=== PATIENT | male | born 1960 | race Caucasian/White ===

== ENCOUNTER → 2021-01-19 | Outpatient (CLI) | payer OTHER ==
[~2021-01-19] VITALS: Ht 68 cm; Wt 105.0 kg
[~2021-01-19] MED LIST: ACETAMINOPHEN 500 MG TAB (TYLENOL) PO PRN; CASIRIVIMAB/IMDEVIMAB 1,200 MG in NS (IVPB) 250 ML IV ONE; EPINEPHrine INJECTION 1 MG/ML AMP IM PRN; ONDANSETRON 4 MG/2 ML (SDV) Z0FRAN IV PRN; diphenhydrAMINE 50 MG/ML INJ (BENADRYL) IV PRN
[2021-01-19 11:39] VITALS: BP 135/69
[2021-01-19 12:51] VITALS: BP 113/72
== END ==
LOC: INFUSION 11:33
PROVIDERS: ATTEND Registered Nurse
DX: U07.1 COVID-19 (principal)

== ENCOUNTER 2021-10-29 19:02 | Emergency (ER) | payer OTHER ==
[~2021-10-29] VITALS: Ht 176 cm; Wt 110.5 kg
[2021-10-29] MEDS ORDERED: NS IV 1000 ML 1,000 ML IV STA ×2 (19:18→20:30)
[2021-10-29] MEDS ORDERED: ACETAMINOPHEN 500 MG TAB (TYLENOL) PO STA (19:18)
--- NOTE | 2021-10-29 19:34 | ED Fever ---
History of Present Illness General Stated Complaint: FEVER,TROUBLE BREATHING Source: patient History of Present Illness Date Seen by Provider: Oct 29, 2021 Time Seen by Provider: 19:05 Initial Comments 60-year-old male presenting from [facility] urgent care. He reports last week on October 22 he was diagnosed with COVID and was prescribed Paxlovid. He took that for 5 days and reports he was feeling better until last night when he started feeling bad again. He has felt like he has chest tightness and shortness of breath with fever and chills. He took tylenol this am. He was told that he had a fever when he was at urgent care and was told to come to the emergency department. He feels little anxious now since he was told he had to come to the emergency department. He denies having nausea, vomiting, abdominal pain, diarrhea, pain with urination, dark-colored urine, cough, runny nose, sore throat, headache. He was not aware that you could have a rebound effect after taking the Paxlovid. 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 Associated Symptoms: No abdominal pain, No chest pain, No confusion, No cough, No diaphoresis, No headache, No muscle aches, No nausea/vomiting, No rash; shortness of breath; No sore throat, No stiff neck, No syncope, No weakness Allergies and Home Medications Allergies Coded Allergies: No Known Drug Allergies (Unverified , 01/19/21) Patient Home Medication List Home Medication List Reviewed: Yes Review of Systems Review of Systems Constitutional: chills, fever, malaise EENTM: no symptoms reported; No ear pain, No epistaxis, No nose congestion, No throat pain Respiratory: No cough; short of breath; No stridor, No wheezing Cardiovascular: No chest pain; palpitations Gastrointestinal: No nausea, No vomiting Genitourinary: No decreased output, No dysuria Musculoskeletal: no symptoms reported Skin: No rash Psychiatric/Neurological: Anxiety Hematologic/Lymphatic: Denies Blood Clots, Denies Easy Bleeding, Denies Easy Bruising Past Bdnalae-Vcvyuj-Tfidqb Hx Patient Social History Tobacco Use?: No Past Medical History Surgery/Hospitalization HX: Diabetes Type II Physical Exam Vital Signs - First Documented 10/29/21 10/29/21 19:32 19:36 Temp 38.0 Pulse 128 Resp 20 B/P (MAP) 142/80 (100) Pulse Ox 99 O2 Delivery Room Air Capillary Refill : Height: '" Weight: lbs. oz. 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 tested, no motor/sensory deficits, alert, oriented x 3 Skin: normal color, warm/dry Focused Exam Lactate Level 10/29/21 19:22: Lactic Acid Level 1.41 Lactic Acid Level Laboratory Tests Test 10/29/21 19:22 Lactic Acid Level 1.41 MMOL/L (0.50-2.00) Progress/Results/Core Measures Suspected Sepsis SIRS Temperature: Pulse: Respiratory Rate: Laboratory Tests 10/29/21 19:22: White Blood Count 12.9H Blood Pressure / Mean: 10/29/21 19:22: Lactic Acid Level 1.41 Laboratory Tests 10/29/21 19:22: Creatinine 1.04, Platelet Count 309, Total Bilirubin 0.7 Results/Orders Lab Results Laboratory Tests Test 10/29/21 19:22 10/29/21 20:00 Range/Units White Blood Count 12.9 H 4.3-11.0 10^3/uL Red Blood Count 5.21 4.30-5.52 10^6/uL Hemoglobin 15.8 13.3-17.7 g/dL Hematocrit 46 40-54 % Mean Corpuscular Volume 88 80-99 fL Mean Corpuscular Hemoglobin 30 25-34 pg Mean Corpuscular Hemoglobin Concent 34 32-36 g/dL Red Cell Distribution Width 12.8 10.0-14.5 % Platelet Count 309 130-400 10^3/uL Mean Platelet Volume 9.4 9.0-12.2 fL Immature Granulocyte % (Auto) 0 % Neutrophils (%) (Auto) 90 H 42-75 % Lymphocytes (%) (Auto) 4 L 12-44 % Monocytes (%) (Auto) 5 0-12 % Eosinophils (%) (Auto) 1 0-10 % Basophils (%) (Auto) 0 0-10 % Neutrophils # (Auto) 11.5 H 1.8-7.8 10^3/uL Lymphocytes # (Auto) 0.5 L 1.0-4.0 10^3/uL Monocytes # (Auto) 0.6 0.0-1.0 10^3/uL Eosinophils # (Auto) 0.2 0.0-0.3 10^3/uL Basophils # (Auto) 0.0 0.0-0.1 10^3/uL Immature Granulocyte # (Auto) 0.0 0.0-0.1 10^3/uL Neutrophils % (Manual) 86 % Lymphocytes % (Manual) 6 % Monocytes % (Manual) 5 % Eosinophils % (Manual) 3 % Toxic Granulation 2+ Platelet Estimate NORMAL Poikilocytosis SLIGHT D-Dimer < 0.27 0.00-0.49 UG/ML Sodium Level 136 135-145 MMOL/L Potassium Level 4.7 3.6-5.0 MMOL/L Chloride Level 99 98-107 MMOL/L Carbon Dioxide Level 24 21-32 MMOL/L Anion Gap 13 5-14 MMOL/L Blood Urea Nitrogen 25 H 7-18 MG/DL Creatinine 1.04 0.60-1.30 MG/DL Estimat Glomerular Filtration Rate 81 BUN/Creatinine Ratio 24 Glucose Level 159 H 70-105 MG/DL Lactic Acid Level 1.41 0.50-2.00 MMOL/L Calcium Level 10.5 H 8.5-10.1 MG/DL Corrected Calcium 8.5-10.1 MG/DL Total Bilirubin 0.7 0.1-1.0 MG/DL Aspartate Amino Transf (AST/SGOT) 15 5-34 U/L Alanine Aminotransferase (ALT/SGPT) 19 0-55 U/L Alkaline Phosphatase 70 40-136 U/L C-Reactive Protein 3.05 H <0.50 MG/DL Total Protein 7.6 6.4-8.2 GM/DL Albumin 4.8 H 3.2-4.5 GM/DL Urine Color YELLOW Urine Clarity CLEAR Urine pH 5.0 5-9 Urine Specific [place] 1.025 H 1.016-1.022 Urine Protein NEGATIVE NEGATIVE Urine Glucose (UA) NEGATIVE NEGATIVE Urine Ketones NEGATIVE NEGATIVE Urine Nitrite NEGATIVE NEGATIVE Urine Bilirubin NEGATIVE NEGATIVE Urine Urobilinogen 0.2 < = 1.0 MG/DL Urine Leukocyte Esterase NEGATIVE NEGATIVE Urine RBC (Auto) NEGATIVE NEGATIVE Urine RBC 0-2 /HPF Urine WBC 2-5 /HPF Urine Squamous Epithelial Cells 2-5 /HPF Urine Crystals NONE /LPF Urine Bacteria TRACE /HPF Urine Casts NONE /LPF Urine Mucus SMALL H /LPF Urine Culture Indicated NO My Orders Orders - JAYE BLAKELY MD Cbc With Automated Diff (10/29/21 19:17) Comprehensive Metabolic Panel (10/29/21 19:17) Blood Culture (10/29/21 19:17) Ua Culture If Indicated (10/29/21 19:17) Ed Iv/Invasive Line Start (10/29/21 19:17) Lactic Acid Analyzer (10/29/21 19:17) Ns Iv 1000 Ml (Sodium Chloride 0.9%) (10/29/21 19:18) Acetaminophen Tablet (Tylenol Tablet) (10/29/21 19:18) Ekg Tracing (10/29/21 19:19) Monitor-Rhythm Ecg Trace Only (10/29/21 19:19) Crp Fs (10/29/21 19:29) Fibrin Degradation Products (10/29/21 19:34) Manual Differential (10/29/21 19:22) Chest 1 View Ap/Pa Only (10/29/21 19:58) Albuterol Inhaler (Albuterol) (10/29/21 22:00) Nursing Communication (Order) (10/29/21 20:30) Ns Iv 1000 Ml (Sodium Chloride 0.9%) (10/29/21 20:30) Albuterol Inhaler (Albuterol) (10/29/21 20:39) Vital Signs/I&O 10/29/21 10/29/21 10/29/21 10/29/21 19:32 19:36 19:36 21:50 Temp 38.0 38.0 36.9 Pulse 128 124 Resp 20 18 B/P (MAP) 142/80 (100) 116/65 Pulse Ox 99 92 O2 Delivery Room Air Room Air Room Air Capillary Refill : Progress Note #1: Progress Note Check labs and urine as well as blood cultures with lactic acid. ECG for his tachycardia. D dimer since he is tachycardic and feeling chest tightness with shortness of breath. CXR to check for infiltrate or effusion. Give NS 1 Liter bolus for hydration. Acetaminophen for fever of 100.4 F. Progress Note #2: Progress Note Labs show WBC count at upper limit of normal 12.9. Chemistry with normal lactic acid of 1.41. He has no acute infiltrate on CXR but looks like he may have some COPD changes or air trapping. ECG has sinus tachycardia but no ST elevation. D Dimer is negative at 0.27. Continue with IVF to help with hydration and tachycardia. His oxygen saturation is 93-96% on room air. Will try albuterol inhaler with spacer to help with breathing, although this will increase his heart rate. Progress Note #3: Progress Note HR improved after 2nd Liter of NS. Pt states he feels like he is breathing better and felt like albuterol helped him as well. Discharged with inhaler with spacer and counseled on follow up and return precautions ECG Initial ECG Impression Date: Oct 29, 2021 Initial ECG Impression Time: 20:00 Initial ECG Rate: 122 Initial ECG Rhythm: S.Tach Initial ECG Comparisson: No Previous ECG Available Comment Sinus tachycardia with a heart rate of 122 bpm. CA interval 170 ms. There is a right bundle branch block. There is no acute ST elevation. QT interval 311 ms with a QTc interval 383 ms. No prior tracing available for comparison. Diagnostic Imaging Diagonstic Imaging: Xray Plain Films/CT/US/NM/MRI: chest Comments NAME: CHELE ROSS [facility] REC#: [id number] PT STATUS: REG ER : 1960 PHYSICIAN: JAYE BLAKELY MD ADMIT DATE: 10/29/21/ER FS Draft Date of Exam:10/29/21 CHEST 1 VIEW AP/PA ONLY INDICATION: Shortness of breath. FINDINGS: The lungs appear to be hyperinflated with flattening of the diaphragms. There is no alveolar consolidation or alveolar pneumonia. There is no significant effusion. There is no pneumothorax. Heart size appears appropriate without current edema or failure. IMPRESSION: Pulmonary hyperinflation suggesting air trapping and possible underlying COPD. No pneumonia or edema evident. Dictated on workstation # [id number] Dict: 10/29/212010 Trans: 10/29/212019 [facility] [id number] Interpreted by: DEIDRA ARMENDARIZ MD Electronically signed by: Reviewed: Reviewed by Me Departure Impression Primary Impression: Shortness of breath Additional Impressions: Tachycardia COVID-19 Dehydration Disposition: 01 HOME, SELF-CARE Condition: Stable Departure-Patient Inst. Decision time for Depature: 21:40 Referrals: SELFMALIKA MD (PCP/Family) Primary Care Physician Patient Instructions: COVID-19 ED, Dehydration, Adult ED, How to Use a Metered Dose Inhaler ED, How to Use a Spacer, Shortness of Breath, Adult ED Add. Discharge Instructions: Use albuterol inhaler with spacer 2 puffs every 4 to 6 hours as needed for shortness of breath and cough. This can make your heart race due to the medicine. Stay well hydrated and drink plenty of fluids. Consider getting a Pulse Oximeter to check your oxygen saturations at home and if the readings are under 89% then you should get rechecked as you may need to be admitted for supplemental oxygen to help you get over Covid infection. JAYE BLAKELY MD Oct 29, 2021 19:34
[2021-10-29 19:42] LABS: BASOPHILS % (AUTO) 0 % (0-10); EOSINOPHILS # (AUTO) 0.2 10^3/uL (0.0-0.3); EOSINOPHILS % (AUTO) 1 % (0-10); HEMATOCRIT 46 % (40-54); HEMOGLOBIN 15.8 g/dL (13.3-17.7); LYMPHOCYTES # (AUTO) 0.5 10^3/uL (1.0-4.0); LYMPHOCYTES % (AUTO) 4 % (12-44); MEAN CORPUSCULAR HEMOGLOBIN 30 pg (25-34); MEAN CORPUSCULAR HGB CONC 34 g/dL (32-36); MEAN CORPUSCULAR VOLUME 88 fL (80-99); MEAN PLATELET VOLUME 9.4 fL (9.0-12.2); MONOCYTES # (AUTO) 0.6 10^3/uL (0.0-1.0); MONOCYTES % (AUTO) 5 % (0-12); NEUTROPHILS # (AUTO) 11.5 10^3/uL (1.8-7.8); NEUTROPHILS % (AUTO) 90 % (42-75); PLATELET COUNT 309 10^3/uL (130-400); WHITE BLOOD COUNT 12.9 10^3/uL (4.3-11.0)
[2021-10-29 20:10] LABS: EOSINOPHILS % (MANUAL) 3 %; LYMPHOCYTES % (MANUAL) 6 %; MONOCYTES % (MANUAL) 5 %; NEUTROPHILS % (MANUAL) 86 %; PLATELET ESTIMATE NORMAL; POIKILOCYTOSIS SLIGHT
[2021-10-29 20:11] LABS: CHLORIDE 99 MMOL/L (98-107); POTASSIUM 4.7 MMOL/L (3.6-5.0); SODIUM 136 MMOL/L (135-145); TOXIC GRANULATION/VACUOLAZATIO 2+
[2021-10-29 20:12] LABS: ALANINE AMINOTRANSFERASE 19 U/L (0-55); ALBUMIN 4.8 GM/DL (3.2-4.5); ALKALINE PHOSPHATASE 70 U/L (40-136); BILIRUBIN,TOTAL 0.7 MG/DL (0.1-1.0); BUN/CREATININE RATIO 24; CALCIUM 10.5 MG/DL (8.5-10.1); CARBON DIOXIDE 24 MMOL/L (21-32); CREATININE SERUM 1.04 MG/DL (0.60-1.30); GFR ESTIMATED 81; GLUCOSE 159 MG/DL (70-105); TOTAL PROTEIN 7.6 GM/DL (6.4-8.2)
--- NOTE | 2021-10-29 20:20 | Diagnostic Imaging Report ---
INDICATION: Shortness of breath. FINDINGS: The lungs appear to be hyperinflated with flattening of the diaphragms. There is no alveolar consolidation or alveolar pneumonia. There is no significant effusion. There is no pneumothorax. Heart size appears appropriate without current edema or failure. IMPRESSION: Pulmonary hyperinflation suggesting air trapping and possible underlying COPD. No pneumonia or edema evident. Dictated by: Dictated on workstation # [id number]
[2021-10-29 20:24] LABS: BILIRUBIN,URINE NEGATIVE (NEGATIVE); CLARITY,URINE CLEAR; COLOR,URINE YELLOW; GLUCOSE, URINE (UA) NEGATIVE (NEGATIVE); KETONES,URINE NEGATIVE (NEGATIVE); LEUKOCYTE ESTERASE ,URINE NEGATIVE (NEGATIVE); NITRITE,URINE NEGATIVE (NEGATIVE); PROTEIN,URINE NEGATIVE (NEGATIVE)
[2021-10-29 20:39] LABS: RBC,URINE 0-2 /HPF
[2021-10-29] MEDS ORDERED: RT-ALBUTEROL HFA 8.5 GM INHALER IH ONE (20:39)
[2021-10-29 20:40] LABS: BACTERIA,URINE TRACE /HPF
[2021-10-29 21:50] VITALS: BP 116/65
[2021-10-29] MEDS ORDERED: RT-ALBUTEROL HFA 8.5 GM INHALER IH SCH (22:00)
== END 2021-10-29 21:55 | disposition home or self-care (01) ==
LOC: EDUNIT# 19:02 → ER FS 19:04
DX: U07.1 COVID-19 (principal); E86.0 Dehydration; R00.0 Tachycardia, unspecified; Z73.0 Burn-out; Z28.310 Unvaccinated for COVID-19
CPT/HCPCS: 36415; 71045; 80053; 81000; 83605; 85007; 85027; 85379; 86141; 87040; 93005; 93041

== ENCOUNTER 2022-03-22 11:07 | Emergency (ER) | payer OTHER ==
[~2022-03-22] VITALS: Ht 172 cm; Wt 110.0 kg
[2022-03-22 11:48] VITALS: BP_SYST 139; BP_SYST 142; BP_SYST 172; BP_DIAS 71; BP_DIAS 72; BP_DIAS 73
[2022-03-22 11:53] LABS: BASOPHILS # (AUTO) 0.1 10^3/uL (0.0-0.1); BASOPHILS % (AUTO) 1 % (0-10); EOSINOPHILS # (AUTO) 0.1 10^3/uL (0.0-0.3); EOSINOPHILS % (AUTO) 1 % (0-10); HEMATOCRIT 48 % (40-54); HEMOGLOBIN 15.9 g/dL (13.3-17.7); LYMPHOCYTES # (AUTO) 1.8 10^3/uL (1.0-4.0); LYMPHOCYTES % (AUTO) 22 % (12-44); MEAN CORPUSCULAR HEMOGLOBIN 29 pg (25-34); MEAN CORPUSCULAR HGB CONC 33 g/dL (32-36); MEAN CORPUSCULAR VOLUME 86 fL (80-99); MEAN PLATELET VOLUME 9.5 fL (9.0-12.2); MONOCYTES # (AUTO) 0.7 10^3/uL (0.0-1.0); MONOCYTES % (AUTO) 8 % (0-12); NEUTROPHILS # (AUTO) 5.6 10^3/uL (1.8-7.8); NEUTROPHILS % (AUTO) 68 % (42-75); PLATELET COUNT 354 10^3/uL (130-400); WHITE BLOOD COUNT 8.2 10^3/uL (4.3-11.0)
[2022-03-22 12:04] LABS: INR 0.9 (0.8-1.4); PROTHROMBIN TIME PATIENT 12.6 SEC (12.2-14.7)
--- NOTE | 2022-03-22 12:08 | Diagnostic Imaging Report ---
EXAMINATION: CT head without contrast. TECHNIQUE: Multiple contiguous axial images were obtained through the brain without the use of intravenous contrast. All CT scans use one or more of the following dose optimizing techniques: Automated exposure control, MA and/or KvP adjustment based on patient size and exam type or iterative reconstruction. HISTORY: Dizziness. COMPARISON: None available. FINDINGS: No large acute territorial ischemia, mass, or hemorrhage. No midline shift or mass effect. The ventricles, cortical sulci, and basilar cisterns are patent and unremarkable. The orbits are normal. Mild mucosal thickening is seen in the paranasal sinuses. Mastoid air cells are clear. No soft tissue abnormality is seen. No osseous lesions or fractures are seen. IMPRESSION: 1. No large acute territorial ischemia, mass, or hemorrhage. Dictated by: Dictated on workstation # [id number]
--- NOTE | 2022-03-22 12:09 | Diagnostic Imaging Report ---
INDICATION: Chest pain and dizziness. TECHNIQUE: Portable AP upright view of the chest is obtained with comparison made to study of 10/29/2021. FINDINGS: Heart size and pulmonary vascularity are within normal limits, and the lungs are clear, bilaterally. IMPRESSION: Unremarkable chest. Dictated by: Dictated on workstation # [id number]
--- NOTE | 2022-03-22 12:10 | Diagnostic Imaging Report ---
PROCEDURE: CT thoracic spine without contrast. TECHNIQUE: Multiple axial computerized tomography images were obtained from the base of the thoracic spine to the vertex without intravenous contrast. Auto Exposure Controls were utilized during the CT exam to meet ALARA standards for radiation dose reduction. INDICATION: Back pain. Comparison: None Vertebral alignment is anatomic. There is preservation of the normal thoracic kyphosis. Vertebral body heights and disc spaces are well maintained. No fracture or subluxation is identified. The visualized lung hsu, soft tissues and other bony structures of the thorax are unremarkable. There is mild diffuse disc space narrowing and endplate spurring most pronounced in the upper thoracic region. Impression: No evidence of fracture or subluxation in the thoracic spine. Dictated by: Dictated on workstation # [id number]
[2022-03-22 12:12] LABS: BUN/CREATININE RATIO 26; CARBON DIOXIDE 30 MMOL/L (21-32); CHLORIDE 99 MMOL/L (98-107); CREATININE SERUM 0.81 MG/DL (0.60-1.30); GFR ESTIMATED 99; GLUCOSE 137 MG/DL (70-105); POTASSIUM 4.2 MMOL/L (3.6-5.0); SODIUM 139 MMOL/L (135-145)
[2022-03-22 12:13] LABS: ALANINE AMINOTRANSFERASE 31 U/L (0-55); ALBUMIN 4.7 GM/DL (3.2-4.5); ALKALINE PHOSPHATASE 78 U/L (40-136); BILIRUBIN,TOTAL 0.5 MG/DL (0.1-1.0); CALCIUM 10.3 MG/DL (8.5-10.1); MAGNESIUM 1.4 MG/DL (1.6-2.4); TOTAL PROTEIN 7.6 GM/DL (6.4-8.2)
[2022-03-22] MEDS ORDERED: MAGNESIUM 1 GM/100 ML IVPB 100 ML IV ONE (12:45)
[2022-03-22] MEDS ORDERED: MECLIZINE 25 MG (ANTIVERT) TAB PO ONE (12:45)
[2022-03-22 13:24] LABS: BILIRUBIN,URINE NEGATIVE (NEGATIVE); CLARITY,URINE CLEAR; GLUCOSE, URINE (UA) NEGATIVE (NEGATIVE); KETONES,URINE NEGATIVE (NEGATIVE); LEUKOCYTE ESTERASE ,URINE NEGATIVE (NEGATIVE); NITRITE,URINE NEGATIVE (NEGATIVE); PH,URINE 5.5 (5-9); PROTEIN,URINE NEGATIVE (NEGATIVE)
[2022-03-22 13:32] LABS: BACTERIA,URINE NEGATIVE /HPF; COLOR,URINE YELLOW; WBC,URINE RARE /HPF
[2022-03-22 13:50] VITALS: BP 131/79
--- NOTE | 2022-03-22 13:50 | ED General ---
General Chief Complaint: Back Problems Stated Complaint: DIZZINESS; NEAR SYNCOPE; BACK PAIN Nursing Triage Note: PT REPORTS HE HAS HAD MID BACK PAIN FOR 3-4 DAYS, WORSE WITH MOVEMENT. REPORTS HE HAS HAD SOME DIZZINESS WITH IT WELL. REPORTS HE HAS CHRONIC CHEST PAIN. Source of Information: Patient History of Present Illness Date Seen by Provider: Mar 22, 2022 Time Seen by Provider: 11:22 Initial Comments 61-year-old male patient sent from urgent care because of dizziness, chest pain, back pain. Patient states he has had bilateral thoracic back pain for the last 3 days as an intermittent pain that getting worse with movement and taking deep breaths and did not get better with Tylenol. Patient also complaining of intermittent episodes of dizziness with standing up and changing the position for the last 3 days without tinnitus, blurred vision, focal neurodeficit, headache, nausea and vomiting. Patient states he has had episodes of dizziness previously but had near syncopal today because of dizziness. Patient also complaining of substernal chest pain with pushing pressure on his chest wall as a chronic problem without new changes. Patient complaining of feeling of a skipping beat occasionally for several years. Patient denies palpitation, fever, cough and congestion, shortness of breath, head injury, diarrhea and constipation, urinary symptoms. Allergies and Home Medications Allergies Coded Allergies: No Known Drug Allergies (Unverified , 01/19/21) Patient Home Medication List Home Medication List Reviewed: Yes Cyclobenzaprine HCl (Cyclobenzaprine HCl) 10 Mg Tablet, 10 MG PO TID Prescribed by: Daisy latif on 03/22/22 1351 Magnesium Oxide (Magnesium Oxide) 400 Mg Tablet, 400 MG PO DAILY Prescribed by: Daisy latif on 03/22/22 1351 Meclizine HCl (Meclizine HCl) 25 Mg Tablet, 25 MG PO TID Prescribed by: Daisy latif on 03/22/22 1351 Naproxen (Naprosyn) 500 Mg Tablet, 500 MG PO BID PRN for pain Prescribed by: Daisy latif on 03/22/22 1351 Review of Systems Review of Systems Constitutional: see HPI EENTM: see HPI Respiratory: see HPI Cardiovascular: see HPI Gastrointestinal: see HPI Genitourinary: see HPI Musculoskeletal: see HPI Skin: see HPI Psychiatric/Neurological: See HPI Hematologic/Lymphatic: See HPI Immunological/Allergic: see HPI Past Aikcxti-Mljjgu-Xxqcen Hx Patient Social History Tobacco Use?: No Use of E-Cig and/or Vaping dev: No Substance use?: No Alcohol Use?: No Pt feels they are or have been: No Immunizations Up To Date First/Initial COVID19 Vaccinat: no Second COVID19 Vaccination Marc: no Third COVID19 Vaccination Date: no Past Medical History Surgery/Hospitalization HX: Diabetes Type II Physical Exam Vital Signs Vital Signs - First Documented 03/22/22 11:20 Temp 36.6 Pulse 65 Resp 18 B/P (MAP) 172/81 (111) Pulse Ox 99 O2 Delivery Room Air Capillary Refill : NONE Height, Weight, BMI Height: '" Weight: lbs. oz. kg; 37.00 BMI Method: General Appearance: No Apparent Distress, WD/WN Eyes: Bilateral Eye Normal Inspection, Bilateral Eye PERRL, Bilateral Eye EOMI HEENT: PERRL/EOMI, TMs Normal, Normal ENT Inspection, Pharynx Normal Neck: Full Range of Motion, Normal Inspection, Non Tender, Supple Respiratory: Lungs Clear, Normal Breath Sounds, No Accessory Muscle Use, No Respiratory Distress, Other (Substernal reproducible pain with moderate pressure touch) Cardiovascular: Regular Rate, Rhythm, No Edema, No Gallop, No JVD, No Murmur, Normal Peripheral Pulses Gastrointestinal: Normal Bowel Sounds, No Organomegaly, No Pulsatile Mass, Non Tender, Soft Back: Normal Inspection, No CVA Tenderness, No Vertebral Tenderness Extremity: Normal Capillary Refill, Normal Inspection, Normal Range of Motion, Non Tender, No Calf Tenderness Neurologic/Psychiatric: Alert, Oriented x3, No Motor/Sensory Deficits, Normal Mood/Affect, registered nurses II-XII Norm as Tested Skin: Normal Color, Warm/Dry Lymphatic: No Adenopathy Progress/Results/Core Measures Suspected Sepsis SIRS Temperature: Pulse: 85 Respiratory Rate: 18 Laboratory Tests 03/22/22 11:16: White Blood Count 8.2 Blood Pressure 139 /73 Mean: 95 Laboratory Tests 03/22/22 11:16: Creatinine 0.81, INR Comment 0.9, Platelet Count 354, Total Bilirubin 0.5 Results/Orders Lab Results Laboratory Tests Test 03/22/22 11:16 03/22/22 12:41 Range/Units White Blood Count 8.2 4.3-11.0 10^3/uL Red Blood Count 5.54 H 4.30-5.52 10^6/uL Hemoglobin 15.9 13.3-17.7 g/dL Hematocrit 48 40-54 % Mean Corpuscular Volume 86 80-99 fL Mean Corpuscular Hemoglobin 29 25-34 pg Mean Corpuscular Hemoglobin Concent 33 32-36 g/dL Red Cell Distribution Width 13.2 10.0-14.5 % Platelet Count 354 130-400 10^3/uL Mean Platelet Volume 9.5 9.0-12.2 fL Immature Granulocyte % (Auto) 0 % Neutrophils (%) (Auto) 68 42-75 % Lymphocytes (%) (Auto) 22 12-44 % Monocytes (%) (Auto) 8 0-12 % Eosinophils (%) (Auto) 1 0-10 % Basophils (%) (Auto) 1 0-10 % Neutrophils # (Auto) 5.6 1.8-7.8 10^3/uL Lymphocytes # (Auto) 1.8 1.0-4.0 10^3/uL Monocytes # (Auto) 0.7 0.0-1.0 10^3/uL Eosinophils # (Auto) 0.1 0.0-0.3 10^3/uL Basophils # (Auto) 0.1 0.0-0.1 10^3/uL Immature Granulocyte # (Auto) 0.0 0.0-0.1 10^3/uL Prothrombin Time 12.6 12.2-14.7 SEC INR Comment 0.9 0.8-1.4 Activated Partial Thromboplast Time 26 24-35 SEC Sodium Level 139 135-145 MMOL/L Potassium Level 4.2 3.6-5.0 MMOL/L Chloride Level 99 98-107 MMOL/L Carbon Dioxide Level 30 21-32 MMOL/L Anion Gap 10 5-14 MMOL/L Blood Urea Nitrogen 21 H 7-18 MG/DL Creatinine 0.81 0.60-1.30 MG/DL Estimat Glomerular Filtration Rate 99 BUN/Creatinine Ratio 26 Glucose Level 137 H 70-105 MG/DL Calcium Level 10.3 H 8.5-10.1 MG/DL Corrected Calcium 8.5-10.1 MG/DL Magnesium Level 1.4 L 1.6-2.4 MG/DL Total Bilirubin 0.5 0.1-1.0 MG/DL Aspartate Amino Transf (AST/SGOT) 19 5-34 U/L Alanine Aminotransferase (ALT/SGPT) 31 0-55 U/L Alkaline Phosphatase 78 40-136 U/L Troponin I < 0.30 <0.30 NG/ML Total Protein 7.6 6.4-8.2 GM/DL Albumin 4.7 H 3.2-4.5 GM/DL Urine Color YELLOW Urine Clarity CLEAR Urine pH 5.5 5-9 Urine Specific [place] 1.010 L 1.016-1.022 Urine Protein NEGATIVE NEGATIVE Urine Glucose (UA) NEGATIVE NEGATIVE Urine Ketones NEGATIVE NEGATIVE Urine Nitrite NEGATIVE NEGATIVE Urine Bilirubin NEGATIVE NEGATIVE Urine Urobilinogen 0.2 < = 1.0 MG/DL Urine Leukocyte Esterase NEGATIVE NEGATIVE Urine RBC (Auto) NEGATIVE NEGATIVE Urine RBC NONE /HPF Urine WBC RARE /HPF Urine Squamous Epithelial Cells NONE /HPF Urine Crystals NONE /LPF Urine Bacteria NEGATIVE /HPF Urine Casts NONE /LPF Urine Mucus NEGATIVE /LPF Urine Culture Indicated NO My Orders Orders - DAISY LATIF MD Cbc With Automated Diff (03/22/22 11:34) Magnesium (03/22/22 11:34) Chest 1 View Ap/Pa Only (03/22/22 11:34) Ekg Tracing (03/22/22 11:34) Comprehensive Metabolic Panel (03/22/22 11:34) Protime With Inr (03/22/22 11:34) Partial Thromboplastin Time (03/22/22 11:34) Monitor-Rhythm Ecg Trace Only (03/22/22 11:34) Ed Iv/Invasive Line Start (03/22/22 11:34) Troponin I Fs (03/22/22 11:34) Ct Head Wo (03/22/22 11:34) Ct Thoracic Spine Wo (03/22/22 11:34) Orthostatic Vital Signs (Adult (03/22/22 11:34) Ua Culture If Indicated (03/22/22 11:34) Meclizine Tablet (Antivert Tablet) (03/22/22 12:45) Magnesium 1 Gm/100 Ml Ivpb (Magnesium Fermin (03/22/22 12:45) Medications Given in ED Current Medications Medications Dose Ordered Sig/Sue Route Start Time Stop Time Status Last Admin Dose Admin Magnesium Sulfate/ Dextrose 100 ml @ 100 mls/hr ONCE ONCE IV 03/22/22 12:45 03/22/22 13:44 DC 03/22/22 12:44 100 MLS/HR Meclizine HCl 25 mg ONCE ONCE PO 03/22/22 12:45 03/22/22 12:46 DC 03/22/22 12:44 25 MG Vital Signs/I&O 03/22/22 03/22/22 03/22/22 03/22/22 11:20 11:48 11:48 13:50 Temp 36.6 36.6 Pulse 65 66 70 82 85 Resp 18 18 B/P (MAP) 172/81 (111) 172/71 (104) 142/72 (95) 131/79 139/73 (95) Pulse Ox 99 99 O2 Delivery Room Air Room Air Capillary Refill : NONE Blood Pressure Mean: 95 Progress Note : Progress Note Patient was evaluated in ER for multiple complaint including dizziness and near syncope, thoracic back pain, chest pain with pressing on his chest as a chronic problem. Patient had unremarkable physical exam and vital sign. Labs and CT head and chest x-ray was unremarkable. EKG showed right bundle branch block and left fascicular block without acute ST and T wave changes. Labs showed normal CBC and troponin. Calcium and BUN was mildly elevated and patient advised to follow-up with his primary care physician regarding elevation of calcium. Magnesium was 1.4 and patient treated with IV magnesium. Patient denies using alcohol. Patient had the fasting condition with blood sugar of 137 and advised to follow-up with his primary care physician regarding uncontrolled diabetes mellitus and follow-up with diabetic diet. Prescription for meclizine, ibuprofen, magnesium, Flexeril and was given. Patient advised to follow-up with primary care physician for work-up of chronic chest pain, hypomagnesemia, hyperkalemia, uncontrolled diabetes mellitus. Patient informed about test result and plan of care and needs for follow-up and all questions was addressed. ECG Initial ECG Impression Date: Mar 22, 2022 Initial ECG Impression Time: 11:17 Initial ECG Rate: 65 Initial ECG Intervals EKG interpreted by me. EKG at 1117 showed normal sinus rhythm at rate of 65, IL interval of 177, QT interval of 407, right bundle branch block and left posterior fascicular block, no acute ST and T wave elevation Diagnostic Imaging Diagonstic Imaging: Xray, CT Comments CT of thoracic and spine interpreted by radiologist and reviewed by me and showed: NAME: CHELE ROSS [facility] REC#: [id number] PT STATUS: [facility] ER : 1960 PHYSICIAN: DAISY LATIF MD ADMIT DATE: 03/22/22/ER FS Signed Date of Exam:03/22/22 CT THORACIC SPINE WO PROCEDURE: CT thoracic spine without contrast. TECHNIQUE: Multiple axial computerized tomography images were obtained from the base of the thoracic spine to the vertex without intravenous contrast. Auto Exposure Controls were utilized during the CT exam to meet ALARA standards for radiation dose reduction. INDICATION: Back pain. Comparison: None Vertebral alignment is anatomic. There is preservation of the normal thoracic kyphosis. Vertebral body heights and disc spaces are well maintained. No fracture or subluxation is identified. The visualized lung hsu, soft tissues and other bony structures of the thorax are unremarkable. There is mild diffuse disc space narrowing and endplate spurring most pronounced in the upper thoracic region. Impression: No evidence of fracture or subluxation in the thoracic spine. Dictated by: Dictated on workstation # [id number] Dict: 03/22/22 1206 Trans: 03/22/22 1642 [id number] Interpreted by: CHON TRIPLETT MD Electronically signed by: CHON TRIPLETT MD 03/22/[address] head interpreted by radiologist and reviewed by ri and showed: NAME: CHELE ROSS [facility] REC#: [id number] PT STATUS: [facility] ER : 1960 PHYSICIAN: DAISY LATIF MD ADMIT DATE: 03/22/22/ER FS Signed Date of Exam:03/22/22 CT HEAD WO EXAMINATION: CT head without contrast. TECHNIQUE: Multiple contiguous axial images were obtained through the brain without the use of intravenous contrast. All CT scans use one or more of the following dose optimizing techniques: Automated exposure control, MA and/or KvP adjustment based on patient size and exam type or iterative reconstruction. HISTORY: Dizziness. COMPARISON: None available. FINDINGS: No large acute territorial ischemia, mass, or hemorrhage. No midline shift or mass effect. The ventricles, cortical sulci, and basilar cisterns are patent and unremarkable. The orbits are normal. Mild mucosal thickening is seen in the paranasal sinuses. Mastoid air cells are clear. No soft tissue abnormality is seen. No osseous lesions or fractures are seen. IMPRESSION: 1. No large acute territorial ischemia, mass, or hemorrhage. Dictated by: Dictated on workstation # [id number] Dict: 03/22/22 1206 Trans: 03/22/22 1212 [id number] Interpreted by: ALIRIO LEONARDO DO Electronically signed by: ALIRIO LEONARDO DO 03/22/221211 Chest x-ray interpreted by radiologist and reviewed by me and showed: NAME: CHELE ROSS [facility] REC#: [id number] PT STATUS: [facility] ER : 1960 PHYSICIAN: DAISY LATIF MD ADMIT DATE: 03/22/22/ER FS Signed Date of Exam:03/22/22 CHEST 1 VIEW AP/PA ONLY INDICATION: Chest pain and dizziness. TECHNIQUE: Portable AP upright view of the chest is obtained with comparison made to study of 10/29/2021. FINDINGS: Heart size and pulmonary vascularity are within normal limits, and the lungs are clear, bilaterally. IMPRESSION: Unremarkable chest. Dictated by: Dictated on workstation # [id number] Dict: 03/22/22 1205 Trans: 03/22/22 1642 [facility] [id number] Interpreted by: CHON TRIPLETT MD Electronically signed by: CHON TRIPLETT MD 03/22/22 164 Departure Impression Primary Impression: Benign positional vertigo Qualified Codes: H81.10 - Benign paroxysmal vertigo, unspecified ear Additional Impressions: Acute thoracic myofascial strain Qualified Codes: S29.019A - Strain of muscle and tendon of unspecified wall of thorax, initial encounter Hypomagnesemia Hypercalcemia Uncontrolled diabetes mellitus Qualified Codes: E11.65 - Type 2 diabetes mellitus with hyperglycemia Disposition: 01 HOME, SELF-CARE Condition: Improved Departure-Patient Inst. Decision time for Depature: 13:45 Referrals: MALIKA ANDREW MD (PCP/Family) Primary Care Physician Patient Instructions: Back Muscle Strain (DC), Hypercalcemia (DC), Heart Disease in Diabetics (DC) Add. Discharge Instructions: Follow-up with your primary care physician for evaluation of chronic chest pain, high calcium and low magnesium and uncontrolled blood sugar Continue current home medication Return to ER as needed All discharge instructions reviewed with patient and/or family. Voiced u nderstanding. Scripts Naproxen (Naprosyn) 500 Mg Tablet 500 MG PO BID PRN for pain, #20 TAB Prov: DAISY LATIF MD 03/22/22 Meclizine HCl (Meclizine HCl) 25 Mg Tablet 25 MG PO TID for Dizziness, #20 TAB Prov: DAISY LATIF MD 03/22/22 Cyclobenzaprine HCl (Cyclobenzaprine HCl) 10 Mg Tablet 10 MG PO TID, #20 TAB Prov: DAISY LATIF MD 03/22/22 Magnesium Oxide (Magnesium Oxide) 400 Mg Tablet 400 MG PO DAILY for 7 Days, #7 TAB Prov: DAISY LATIF MD 03/22/22 DAISY LATIF MD Mar 22, 2022 13:50
[2022-03-22] MEDS ORDERED: CYCL10TA25 PO (13:51)
[2022-03-22] MEDS ORDERED: MAGN400T7 PO (13:51)
[2022-03-22] MEDS ORDERED: NAPR-1071 PO (13:51)
[2022-03-22] MEDS ORDERED: MECL-149 PO (13:51)
== END 2022-03-22 13:53 | disposition home or self-care (01) ==
LOC: EDUNIT# 11:07 → ER FS 11:09
DX: S29.012A Strain of muscle and tendon of back wall of thorax, initial encounter (principal); H81.10 Benign paroxysmal vertigo, unspecified ear; E83.42 Hypomagnesemia; E83.52 Hypercalcemia; E11.9 Type 2 diabetes mellitus without complications; I45.2 Bifascicular block; G89.29 Other chronic pain; Z28.310 Unvaccinated for COVID-19; X58.XXXA Exposure to other specified factors, initial encounter
CPT/HCPCS: 36415; 70450; 71045; 72128; 80053; 81000; 83735; 84484; 85025; 85610; 85730; 93005; 93041